=== PATIENT | female | born 1945 | race Caucasian/White ===

== ENCOUNTER 2016-12-31 13:27 | Emergency (ER) | payer MEDICARE, MEDICAID ==
[~2016-12-31] VITALS: Ht 157.5 cm; Wt 80.7 kg
--- NOTE | 2016-12-31 20:54 | EKG ---
[facility] [address] [facility] [address] [place] [address] Signed Normal sinus rhythm Normal ECG No previous ECGs available Confirmed by ERLINDA CLARK MD ([id number]) on 12/31/2016 8:54:38 PM Electronically Signed By: ERLINDA CLARK MD 12/31/164 PATIENT NAME: KIMO LYNNE Electrocardiogram DATE OF : 49 PHYSICIAN: ERLINDA CLARK MD REPORT #: [id number] REPORT IS CONFIDENTIAL AND NOT TO BE RELEASED WITHOUT AUTHORIZATION
== END 2016-12-31 15:39 | disposition home or self-care (01) ==
LOC: ED 13:27
DX: S06.0X1A Concussion with loss of consciousness of 30 minutes or less, initial encounter (principal); E11.9 Type 2 diabetes mellitus without complications; I10 Essential (primary) hypertension; Z87.891 Personal history of nicotine dependence; W17.89XA Other fall from one level to another, initial encounter; Z88.0 Allergy status to penicillin; Z88.5 Allergy status to narcotic agent
CPT/HCPCS: 70450; 80053; 84484; 85025; 93005; 93010; 99284